=== PATIENT | female | born 1990 | race Caucasian/White ===

== ENCOUNTER → 2017-02-14 20:00 | Outpatient (CLI) | payer MEDICAID ==
[2017-02-14 20:42] LABS: UDS - AMPHET NEGATIVE QUAL (NEGATIVE); UDS - BARB NEGATIVE QUAL (NEGATIVE); UDS - BENZO NEGATIVE QUAL (NEGATIVE); UDS - COCAINE NEGATIVE QUAL (NEGATIVE); UDS - METH NEGATIVE QUAL (NEGATIVE); UDS - OPIATE NEGATIVE QUAL (NEGATIVE); UDS - PCP NEGATIVE QUAL (NEGATIVE); UDS - THC NEGATIVE QUAL (NEGATIVE)
[2017-02-14 20:43] LABS: APPEARANCE CLOUDY (CLEAR); BILIRUBIN NEGATIVE (NEGATIVE); COLOR YELLOW (YELLOW); GLUCOSE NEGATIVE (NEGATIVE); KETONE NEGATIVE (NEGATIVE); LEUKOCYTE ESTERASE TRACE (NEGATIVE); NITRITE NEGATIVE (NEGATIVE); PROTEIN NEGATIVE (NEGATIVE); RED CELLS - URINE RARE /hpf (0-5); UROBILINOGEN NORMAL (NORMAL); WHITE CELLS - URINE 0-5 /hpf (0-5)
[2017-02-14 20:44] LABS: AMORPHOUS SEDIMENT >1+ /lpf (NONE SEEN); BACTERIA MODERATE /hpf (NONE SEEN)
== END | disposition home or self-care (01) ==
LOC: D.LDO 20:00
PROVIDERS: Obstetrics & Gynecology
DX: O26.892 Other specified pregnancy related conditions, second trimester (principal); Z3A.25 25 weeks gestation of pregnancy; R10.30 Lower abdominal pain, unspecified; B19.20 Unspecified viral hepatitis C without hepatic coma

== ENCOUNTER 2017-03-25 20:24 | Outpatient (CLI) | payer MEDICAID ==
[2017-03-25 21:08] LABS: APPEARANCE CLEAR (CLEAR); BILIRUBIN NEGATIVE (NEGATIVE); COLOR YELLOW (YELLOW); GLUCOSE NEGATIVE (NEGATIVE); KETONE NEGATIVE (NEGATIVE); NITRITE NEGATIVE (NEGATIVE); PROTEIN NEGATIVE (NEGATIVE); SPECIFIC GRAVITY 1.025 (1.005-1.020); UROBILINOGEN NORMAL (NORMAL)
== END 2017-03-25 21:44 | disposition home or self-care (01) ==
LOC: D.LDO 20:24
PROVIDERS: Obstetrics & Gynecology
DX: O26.853 Spotting complicating pregnancy, third trimester (principal); Z3A.31 31 weeks gestation of pregnancy; B19.20 Unspecified viral hepatitis C without hepatic coma

== ENCOUNTER 2017-03-29 19:34 | Emergency (ER) | payer MEDICAID | END 2017-03-29 21:03 | disposition home or self-care (01) | LOC: D.ER 19:34 | DX: M25.561 Pain in right knee (principal); O26.893 Other specified pregnancy related conditions, third trimester; Z3A.32 32 weeks gestation of pregnancy ==

== ENCOUNTER → 2017-04-04 10:08 | Outpatient (CLI) | payer MEDICAID ==
[~2017-04-04 10:08] MED LIST: IBUPROFEN800 MG PO; PRENATAL COMPLE1 TAB PO
== END | disposition home or self-care (01) ==
LOC: D.LDO 10:08 → D.LABREF 10:08
DX: O36.8130 Decreased fetal movements, third trimester, not applicable or unspecified (principal); Z3A.32 32 weeks gestation of pregnancy

== ENCOUNTER 2017-05-11 21:15 | Inpatient (IN) | payer OTHER ==
[~2017-05-11] VITALS: Ht 157.5 cm; Wt 85.9 kg
[2017-05-11] MEDS ORDERED: PRENATAL COMPLE1 TAB PO (21:37)
[2017-05-11 21:40] VITALS: BP 130/72
[2017-05-11 22:06] VITALS: BP 130/72; Ht 157.5 cm; Wt 85.9 kg
[2017-05-11 22:17] LABS: APPEARANCE HAZY (CLEAR); BASOPHILS 0.1 % (0-2); COLOR YELLOW (YELLOW); HEMATOCRIT 33.1 % (36.0-48.0); HEMOGLOBIN 11.5 g/dL (12-16); IMMATURE GRANULOCYTES 0.8 % (0-5); LYMPHOCYTES 29.2 % (15-50); MCH 32.3 pg (26.0-34.0); MCHC 34.7 g/dL (31.0-37.0); MEAN PLATELET VOLUME 11.1 fL (7.4-10.4); MONOCYTES 6.6 % (2-11); NEUTROPHILS 61.3 % (40-80); PLATELET COUNT 236 10x3/uL (130-400); RBC 3.56 10x6/uL (4.00-5.40); RDW 12.9 % (11.5-14.5); SPECIFIC GRAVITY 1.015 (1.005-1.020); WBC 11.9 10x3/uL (4.8-10.8)
[2017-05-11 22:18] LABS: BILIRUBIN NEGATIVE (NEGATIVE); GLUCOSE NEGATIVE (NEGATIVE); KETONE NEGATIVE (NEGATIVE); NITRITE NEGATIVE (NEGATIVE); PROTEIN TRACE mg/dL (NEGATIVE); UROBILINOGEN NORMAL (NORMAL)
[2017-05-11 22:20] LABS: BACTERIA FEW /hpf (NONE SEEN)
[2017-05-11 22:24] LABS: UDS - AMPHET NEGATIVE QUAL (NEGATIVE); UDS - BARB NEGATIVE QUAL (NEGATIVE); UDS - BENZO NEGATIVE QUAL (NEGATIVE); UDS - COCAINE NEGATIVE QUAL (NEGATIVE); UDS - OPIATE NEGATIVE QUAL (NEGATIVE); UDS - PCP NEGATIVE QUAL (NEGATIVE); UDS - THC NEGATIVE QUAL (NEGATIVE)
[2017-05-11 22:34] LABS: ALBUMIN 2.6 g/dL (3.4-5.0); ALKALINE PHOSPHATASE 140 U/L (46-116); ALT (SGPT) 59 U/L (10-68); BILIRUBIN - TOTAL 0.15 mg/dL (0.2-1.3); CALC OSMOLALITY 274 mosm/kg (275-300); CALCIUM 9.2 mg/dL (8.5-10.1); CARBON DIOXIDE 21.7 mmol/L (21.0-32.0); CHLORIDE - SERUM 102 mmol/L (98-107); CREATININE - SERUM 0.7 mg/dL (0.6-1.3); GLUCOSE 130 mg/dL (74-106); POTASSIUM - SERUM 3.7 mmol/L (3.5-5.1); SODIUM 136 mmol/L (136-145); UREA NITROGEN 14 mg/dL (7-18); eGFR NON AFRICAN AMERICAN > 90 mL/min (90-120)
--- NOTE | 2017-05-12 12:10 | OP ---
PATIENT NAME: EVER VILLAVICENCIO MEDICAL RECORD: [id number] :88 LOCATION:[id number] ADMISSION DATE:05/11/17 SURGEON: ROMAIN LYN MD DATE OF OPERATION: 05/12/2017 PREDELIVERY DIAGNOSES: 1. Hepatitis C. 2. Active labor at term. POSTDELIVERY DIAGNOSES: 1. Hepatitis C. 2. Active labor at term. PROCEDURE: Vaginal delivery. ATTENDING: Romain Lyn M.D. 2ND PRESSMAN: Bryson Ruvalcaba. ANESTHETIC: Continuous lumbar epidural. FINDINGS: Viable female , GRETTA presentation, Apgars 9 and 9, weight 2680 grams. No lacerations. Placenta spontaneous and intact. ESTIMATED BLOOD LOSS: 350 cc. DISPOSITION: Mother and recovered in room. TRANSINT:[id number] Voice Confirmation ID: [id number] DOCUMENT ID: [id number] ROMAIN LYN MD at 1210 CC: [id number] DICTATION DATE: 05/12/1742 WARPING MACHINE OPERATOR: 05/12/17 0823 ADM IN [facility] [address] [id number]
[2017-05-12 19:48] VITALS: BP 105/64
[2017-05-13 07:25] VITALS: BP 104/68
[2017-05-13] MEDS ORDERED: IBUPROFEN800 MG PO (13:38)
[2017-05-15 06:12] LABS: RAPID PLASMA REAGIN Non Reactive (Non Reactive)
--- NOTE | 2017-05-17 08:10 | DS ---
PATIENT:EVER VILLAVICENCIO :88 MEDICAL RECORD: [id number] DISCHARGE SUMMARY ADMISSION DATE: 05/11/17 DISCHARGE DATE: 05/13/17 DATE OF ADMISSION: 05/11/2017 DATE OF DISCHARGE: 05/13/2017 ADMISSION DIAGNOSIS: Active labor. DISCHARGE DIAGNOSIS: Mother delivered at term. PROCEDURE: Vaginal delivery. HISTORY AND PHYSICAL: See the H&P in the chart. SUMMARY OF HOSPITALIZATION: The patient was admitted to the hospital and delivered vaginally without incident. The patient is doing well at the time of discharge, has minimal lochia and adequate pain control. The patient's discharge medication will include Motrin 800 mg. The patient has been given precautions for risks as well as contraception counseling this morning. Follow up in 4 weeks at [facility]. TRANSINT:[id number] Voice Confirmation ID: [id number] DOCUMENT ID: [id number] ELENA LYN MD at 0810 CC: [id number] DICTATION DATE: 05/13/17 0633 WINDOW COVERING SALES CONSULTANT: 05/13/17 1843 DIS IN 05/13/17 [facility] [address] [place] [address]
== END 2017-05-13 14:30 | disposition home or self-care (01) | DRG 774 ==
LOC: D.LD 21:15
PROVIDERS: ADMIT Obstetrics & Gynecology
PROC: 10E0XZZ Delivery of Products of Conception, External Approach (ICD-10-PCS; principal; 2017-05-12)
DX: O98.42 Viral hepatitis complicating childbirth (principal); Z37.0 Single live birth; B19.20 Unspecified viral hepatitis C without hepatic coma; O99.214 Obesity complicating childbirth; Z3A.38 38 weeks gestation of pregnancy